=== PATIENT | male | born 1940 | race Caucasian/White ===

== ENCOUNTER → 2019-03-08 | Outpatient (CLI) | payer OTHER ==
[~2019-03-08] MED LIST: ASPI81CH; CHOL10002; CYCL10; DAILY MULTIPLE1 EACH; FISH OIL PO; GLUC500; GLUCOSAMINE PO; HYDACE5; LOVA20 PO; LOVA40; MICROZIDE12.5 M1; MULVITMIND PO; UBID10; UBID100 PO
== END | disposition home or self-care (01) ==
LOC: PLD 12:26 → LAB SHORT 12:26
DX: C04.1 Malignant neoplasm of lateral floor of mouth (principal)
CPT/HCPCS: 88305

== ENCOUNTER → 2019-03-21 | Outpatient (CLI) | payer OTHER | END | disposition home or self-care (01) | LOC: LAB SHORT 07:38 → PLD 07:38 | DX: C44.329 Squamous cell carcinoma of skin of other parts of face (principal) | CPT/HCPCS: 88305 ==

== ENCOUNTER → 2019-09-26 | Outpatient (CLI) | payer OTHER | END | disposition home or self-care (01) | LOC: LAB SHORT 11:25 → PLD 11:25 | DX: C44.319 Basal cell carcinoma of skin of other parts of face (principal) | CPT/HCPCS: 88305 ==

== ENCOUNTER → 2020-09-16 | Outpatient (CLI) | payer OTHER | END | disposition home or self-care (01) | LOC: PLD 10:46 → LAB SHORT 10:46 | DX: C44.42 Squamous cell carcinoma of skin of scalp and neck (principal) | CPT/HCPCS: 88173 ==

== ENCOUNTER → 2021-01-28 | Outpatient (CLI) | payer OTHER | END | disposition home or self-care (01) | LOC: LAB SHORT 11:37 → LAB 11:37 | DX: L03.313 Cellulitis of chest wall (principal) | CPT/HCPCS: 87015; 87116; 87206 ==

== ENCOUNTER 2021-06-12 08:26 | Day surgery (SDC) | payer OTHER ==
--- NOTE | 2021-06-11 13:14 | NUR ---
CALLED PT, SYDNEE ANSWERED ALL QUESTIONS FOR PRE-OP.
[~2021-06-12] VITALS: Ht 170.2 cm; Wt 63.7 kg
[~2021-06-12 08:26] MED LIST changes: +KRILL OIL500 MG PO; +Preservision S1 EACH PO; +VIT1CAPS12
--- NOTE | 2021-06-12 09:02 | NUR ---
PT ADMITTED TO [facility]. AGREES WITH PLANNED PROCEDURE. LUNG SOUNDS DIMINISHED T/O.
--- NOTE | 2021-06-12 09:44 | NUR ---
06/12/21 0944 Lori Smith SEE ANESTHESIA RECORD.
--- NOTE | 2021-06-12 10:51 | NUR ---
PT TOLERATING WARM C.L.. PT REPORTS HAVING APPT WITH [facility] FOR PEG TUBE. Patient up to Ambulate independently. Gait steady. Discharge instructions reviewed with patient. Patient verbalizes understanding. Copy given to patient to take home. Patient States Post-Procedure ride home has been arranged. Discharged via wheelchair to private car for ride home. ALSO DISCUSSED INSTRUCTIONS WITH .
== END 2021-06-12 10:51 | disposition home or self-care (01) ==
LOC: ORSCMMR 08:26
PROVIDERS: Surgery
PROC: 0DH63UZ Insertion of Feeding Device into Stomach, Percutaneous Approach (ICD-10-PCS; principal; 2021-06-12 10:00)
DX: C04.1 Malignant neoplasm of lateral floor of mouth (principal); C77.0 Secondary and unspecified malignant neoplasm of lymph nodes of head, face and neck; E78.5 Hyperlipidemia, unspecified; I10 Essential (primary) hypertension; F17.210 Nicotine dependence, cigarettes, uncomplicated; Z79.82 Long term (current) use of aspirin
CPT/HCPCS: J0690; J2704; J7120

== ENCOUNTER → 2021-08-19 | Outpatient (CLI) | payer OTHER | END | disposition home or self-care (01) | LOC: LAB SHORT 11:32 → PLD 11:32 | DX: C44.319 Basal cell carcinoma of skin of other parts of face (principal) | CPT/HCPCS: 88305 ==

== ENCOUNTER 2021-12-04 10:45 | Inpatient (IN) | payer OTHER ==
[~2021-12-04] VITALS: Ht 170.2 cm; Wt 60.0 kg
--- NOTE | 2021-12-04 11:50 | NUR ---
Ambulatory in Day Surgery History, Chart, Medications and Allergies reviewed before start of procedure.Pre-Op teaching done. Pt verbalizes understanding. DR ROMAN AND DR. HWANG NOTIFIED PT HAD 2 PROTIEN SHAKES VIA PEG TUBE AT 0600 WILL PROCEDURE TO SURGERY AT 1200
--- NOTE | 2021-12-04 18:43 | NUR ---
PT ARRIVED THIS AFTERNOON POST TRACHEOSTOMY PLACEMENT, SCANT BLEEDING NOTED AROUND NEW TRACH. TRACH COLLAR IN PLACE AND TUBE IS SECURE, SPO2 >95%. PT WOTH PRODUCTIVE COUGH UPON ARRIVAL, TRACH IS SUCTIONED ONCE WITH GOOD RESOLUTION OF SECRETIONS. PT ABLE TO MAKE NEEDS KNOWN USING NOTE PAD AND PEN. PT ABLE TO USE URINAL WITH MINIMAL ASSISTANCE. SKIN PWD AND INTACT. NO RESP DISTRESS NOTED
--- NOTE | 2021-12-05 06:04 | NUR ---
SHIFT SUMMARY ASSUMED CARE OF PT AT 1900. PT IS A/OX4. MOUTHS WORDS, USES HANDS, AND WRITES FOR COMMUNICATION. HEART SOUNDS REGULAR. LUNG SOUNDS CLEAR. PT TRACH HAS SMALL AMOUNT OF BLOOD SURROUNDING IT. PT COUGH/LEAKING LARGE AMOUNTS OF THICK SPUTUM/MUCUS. PT DEEP SUCTIONED OFTEN, PT ALSO SUCTIONS SELF. RT COUNCILED PT ABOUT TRACH AND CARE OF. TRACH CHANGED DUE TO SECRETIONS. PT ON TRACH COLLAR WITH 6L BLEED IN. SATURATIONS 99%. PT IS INDEPENDENT TO URINAL. NO COMPLAINTS OTHER THEN NEEDING TO BE SUCTIONED OFTEN.
[2021-12-05 11:04] LABS: BASOPHILS ABSOLUTE AUTO 0.03 K/mm3 (0.00-0.23); BASOPHILS PERCENT AUTO 0 % (0-2); EOSINOPHILS ABSOLUTE AUTO 0.02 K/mm3 (0.00-0.68); EOSINOPHILS PERCENT AUTO 0 % (0-6); Hematocrit 33.9 % (37.0-53.0); Hemoglobin 11.8 g/dL (13.5-17.5); IMMATURE GRAN ABSOLUTE AUTO 0.15 K/mm3 (0.00-0.10); IMMATURE GRAN PERCENT AUTO 1 % (0-1); LYMPHOCYTES PERCENT AUTO 7 % (21-46); MONOCYTES ABSOLUTE AUTO 1.87 K/mm3 (0.16-1.47); MONOCYTES PERCENT AUTO 17 % (4-13); Mean Corpuscular HGB 32.6 pg (26.0-34.0); Mean Corpuscular HGB Conc 34.8 g/dL (31.5-36.5); Mean Corpuscular Volume 94 fL (80-100); NEUTROPHILS ABSOLUTE AUTO 8.11 K/mm3 (1.96-9.15); NEUTROPHILS PERCENT AUTO 74 % (41-73); RDW Coefficient Variation 13.2 % (11.7-14.2); RDW Standard Deviation 45.1 fL (35.1-46.3); Red Blood Cell Count 3.62 M/mm3 (4.30-5.90); White Blood Cell Count 10.98 K/mm3 (4.00-11.30)
[2021-12-05 11:24] LABS: Albumin, Blood 2.5 g/dL (3.4-5.0); Albumin/Globulin Ratio 0.7 (0.8-1.8); Bilirubin, Total 0.8 mg/dL (0.1-1.0); Bun/Creatinine Ratio 25.2 (12.0-20.0); Calcium, Blood 8.7 mg/dL (8.5-10.1); Creatinine, Blood 0.6 mg/dL (0.60-1.20); Globulin, Blood 3.7 g/dL (2.2-4.0); Potassium, Blood 3.8 mmol/L (3.5-5.5); Total Protein, Blood 6.2 g/dL (6.4-8.2)
[2021-12-05 11:38] LABS: Mean Platelet Volume 10.8 fL (9.1-12.4)
[2021-12-05 11:48] LABS: Platelet Count 208 K/mm3 (150-400)
--- NOTE | 2021-12-05 15:15 | NUR ---
DR ROMAN'S ANSWERING SERVICE CALLED AT THIS TIME, AWAITING CALL BACK
--- NOTE | 2021-12-05 17:49 | NUR ---
PT REMAINS A/O X4, VSS, PT WITH LOW GRADE FEVER THIS AFTERNOON WHCIH WAS TREATED WITH TYLENOL. TUBE FEEDS CHANGED FROM CONTINUOUS TO BOLUS, BOLUS FEEDS BEING TOLERATED WELL. TRACH PRODUCES MODERATE AMT OF SPUTUM, NO DEEP SUCTIONING REQUIRED THIS SHIFT, ORAL SUCTIONING PERFORMED. DR ROMAN CALLED, HE WILL BE IN TO SEE PT ON WEDNESDAY TO CHANGE TRACH CANNULA, ALL SUPPLIES REQUESTED BY DR ROMAN ARE IN ROOM. O2 NEEDS HAVE NOT CHANGED TODAY, REMAINS ON 6L VIA TRACH COLLAR WITH HUMIDITY. SPO2 >95%. PT CONTINUES TO COMMUNITCATE WITH PAPER AND PEN, ABLE TO MAKE NEEDS KNOWN.
--- NOTE | 2021-12-06 05:29 | NUR ---
SHIFT SUMMARY PT ALERT AND ORIENTED X 4. HR STABLE. BP STABLE. NO CP OR PRESSURE REPORTED. OXYGEN SATURATION MAINTAINED ABOVE 95% ON 6 L VIA TRACH COLLAR. PT SUCTIONED ONCE AT 0500. PT ABLE TO CLEAR OWN SECRETIONS AND USE ORAL SUCTION ON OWN. PT REPORTS TO HAVE "BURNING EYES" DURING SHIFT. PT PROVIDED WITH COOL WASH RAG. PT REPORTS RELIEF. NO CREPITUS. PT HAS MODERATE AMOUNT OF SECRETIONS. PINK AND THICK IN COLOR. DRESSING CHANGED FREQUENTLY D/T SECRETIONS. PT SLEPT T/O SHIFT. CALL LIGHT WITHIN REACH. PT ABLE TO TURN SELF IN BED NEEDED. WILL CONT TO MONITOR UNTIL REPORT GIVEN TO DAYSHIFT RN.
[2021-12-06 08:44] LABS: Hematocrit 31.6 % (37.0-53.0); Hemoglobin 10.7 g/dL (13.5-17.5)
--- NOTE | 2021-12-06 10:30 | NUR ---
AM NOTE: PATIENT ALERT AND ORIENTED X4. WRITING/MOUTHING WORDS TO COMMUNICATE. PERRLA. DENIES NUMBNESS/TINGLING. SBA TO USE URINAL AT BEDSIDE. ABLE TO TURN SELF IN BED. ON 5.5L OF O2 VIA TRACH COLLAR SATING HIGH 90'S. RESPIRATORY CARE IN THIS AM AND CHANGED TRACH COLLAR/TRACH CARE. PATIENT COUGHING WITH THICK CARLOS/RED TINGED SPUTUM. SUCTION NEEDED. DENIES NEED FOR SUCTION THIS AM. LUNGS SOUNDING COARSE AND DIM. ON TELE SHOWING SINUS RHYTHM WITH PROLONGED QTC THIS AM MEASURING 0.53. DR. VELASQUEZ NOTIFIED, WILL CONTINUE TO MONITOR QTC. VITAL SIGNS STABLE. DENIES CHEST PAIN/PRESSURE. NO SIGNS OF EDEMA. DENIES ABDOMINAL PAIN/NAUSEA. 0800 TUBE FEED COMPLETED, PATIENT PARTICIPATED AND INSTRUCTED RN HOW TO DO GRAVITY FEEDS. WATER FLUSH BEFORE AND AFTER TUBE FEED. PEG TUBE INSERTION SITE CLEANED WITH SALINE AND CLEAN GAUZE PLACED. SLEEPING AT THIS TIME. WILL CONTINUE TO MONITOR.
--- NOTE | 2021-12-06 11:52 | NUR ---
PATIENT CURRENTLY ON ROOM AIR. RT IN ROOM TO HELP TITRATE. CONTINUOUS SPO2 MOINTORING AT THIS TIME TO WATCH CLOSELY. SATING 91-94% ON ROOM AIR. AFTERNOON TEMP 100.9 TYLENOL GIVEN PT. DENIES PAIN. REQUESTING TO HAVE LUNCH TUBE FEED AT 1230. WILL CONTINUE TO MONITOR.
--- NOTE | 2021-12-06 12:00 | NUR ---
AFTERNOON QTC CHECK WNL, READING 0.45
--- NOTE | 2021-12-06 15:24 | NUR ---
13 BEAT RUN OF VTACH, SEE SAVED TELE EVENTS. PATIENT LAYING IN BED AWAKE. DENIES SYMPTOMS. THIS RN 5-10 MIN PRIOR IN ROOM WITH PATIENT DOING VITALS AND LINNEN CHANGE. CALL PLACED TO DR. LEE, NO NEW ORDERS FOR THIS RN TO PLACE.
--- NOTE | 2021-12-06 17:50 | NUR ---
SHIFT SUMMARY: NO ACUTE CHANGES. ON ROOM AIR VIA TRACH COLLAR WITH HUMIDITY. MODERATE AMOUNT OF THICK YELLOW/RED TINGED SPUTUM THIS SHIFT. PATIENT SUCTIONING VIA MOUTH, THIS RN STERILE TRACH SUCTION X2. Q2 TRACH CARE CLEANING SECRETIONS AND REPLACING GAUZE. 13 BEAT RUN VTACH, NONSYMPTOMATIC. SINUS RHYTHM 90'S. DENIES CHEST PAIN/PRESSURE. ONLY COMPLAINS OF PAIN WHEN SWALLOWING. TYLENOL GIVEN X1 FOR ELEVATED TEMP. USING URINAL TO VOID. TUBE FEEDINGS TO GRAVITY WITH WATER FLUSHES AND ADDITIONAL WATER BOLUSES THROUGHOUT SHIFT. PATIENT REFUSED ORAL CARE AND BED BATH THIS SHIFT. DENIES NEEDS AT THIS TIME. CALL LIGHT IN REACH.
[2021-12-07 04:14] LABS: Hematocrit 32.8 % (37.0-53.0); Hemoglobin 11.1 g/dL (13.5-17.5)
[2021-12-07 04:30] LABS: Bun/Creatinine Ratio 21.6 (12.0-20.0); Calcium, Blood 8.7 mg/dL (8.5-10.1); Creatinine, Blood 0.65 mg/dL (0.60-1.20)
--- NOTE | 2021-12-07 06:31 | NUR ---
SHIFT SUMMARY PT ALERT AND ORIENTED X 4. HR STABLE. BP STABLE. NO CP OR PRESSURE. TRACH SUCTIONED ONE TIME DURING SHIFT. OXYGEN SATURATION MAINTAINED ABOVE 92% ON RA W/TRACH COLLAR TO HUMIDIFICATION. PT ABLE TO TURN SELF IN BED. SLEPT T/O SHIFT. DRESSING ON TRACH CHANGED NEEDED. MUCOUS NO LONGER BLOOD TINGED, YELLOW/WHITE IN COLOR AT THIS TIME. ORAL CARE PROVIDED ONCE. PT REFUSING CARE AT TIMES. AGGITATED AT TIMES. CALL LIGHT WITHIN REACH. WILL CONT TO MONITOR UNTIL REPORT GIVEN TO DAYSHIFT RN.
--- NOTE | 2021-12-07 06:58 | NUR ---
[facility] AND [facility]ARTS/ORDERS NOT ACCESSIBLE FROM [phone] 12/06/21
--- NOTE | 2021-12-07 09:06 | NUR ---
AM NOTE: PATIENT ALERT AND ORIENTED. USING NOTEPAD AND MOUTHING WORDS TO COMMUNICATE. DENIES NUMBNESS/TINGLING. ON ROOM AIR VIA TRACH COLLAR WITH HUMIDIFICATION. TRACH CARE COMPELTED THIS AM. SUCTIONING NEEDED. PATIENT SUCTION AT BEDSIDE. THICK YELLOW/GREEN PINK TINGED SPUTUM. PATIENT ABLE TO COUGH AND CLEAR SPUTUM. TELE SHOWING SINUS TACH WITH HR 90'S. DENIES CHEST PAIN/PRESSURE. VITAL SIGNS STABLE. ORAL TEMP 98.8 THIS AM. COMPLAINS OF CONSTIPATION. STATES HE HAS NOT HAD BM IN 4-5 DAYS. SUPPOSITORY GIVEN THIS AM ALONG WITH SCHEDULED DOCUSATE SODIUM PT. TUBE FEED COMPLETED THIS AM WITH WATER FLUSHES. USING URINAL TO VOID. DENIES NEEDS AT THIS TIME. WILL CONTINUE TO MONTIOR.
--- NOTE | 2021-12-07 18:06 | NUR ---
SHIFT SUMMARY: NO ACUTE CHANGES THROUGHOUT SHIFT. REMAINS ON ROOM AIR WITH TRACH COLLAR HUMIDIFICATION. TRACH CARE DONE THIS AM AND EVENING. INNER CANNULA CHANGED WITH 2ND RN TO HELP/TEACH THIS RN. DEEP STERILE TRACH SUCTION DONE 3X THIS SHIFT. PATIENT USING BEDSIDE SUCTION FOR SPUTUM IN MOUTH. NO CHANGES TO TELE. TYLENOL GIVE PT X1. 2 SMALL BOWEL MOVEMENTS THIS SHIFT. TUBE FEEDINGS WITH WATER FLUSHES DONE X2. BED BATH DONE. PLAN FOR DR. ROMAN TO COME TOMORROW AND CHANGE TRACH SIZE. FAMILY WILL BE HERE TOMORROW AND TRACH CARE EDUCATION NEEDS TO BE DONE WITH THEM. WRITTEN EDUCATION PRINTED AND PACKET MADE FOR PATIENT AND FAMILY TO TAKE HOME. DENIES NEEDS AT THIS TIME. CALL LIGHT IN REACH.
--- NOTE | 2021-12-07 23:01 | NUR ---
CARE ASSUMPTION: RECEIVED REPORT FROM MICHOACANO ALARCON RN. PATIENT IN BED WITH HUMIDIFIER OVER TRACH. VS WNL ON RA. PATIENT DENIES CHEST PAIN OR SOB. SUCTIONED NEEDED AND PATIENT HAS PROVIDED OWN ORAL CARE. BED LOW WITH CALL LIGHT IN REACH.
[2021-12-08 04:48] LABS: BASOPHILS ABSOLUTE AUTO 0.03 K/mm3 (0.00-0.23); BASOPHILS PERCENT AUTO 0 % (0-2); EOSINOPHILS ABSOLUTE AUTO 0.03 K/mm3 (0.00-0.68); EOSINOPHILS PERCENT AUTO 0 % (0-6); Hematocrit 33.4 % (37.0-53.0); Hemoglobin 10.9 g/dL (13.5-17.5); IMMATURE GRAN ABSOLUTE AUTO 0.03 K/mm3 (0.00-0.10); IMMATURE GRAN PERCENT AUTO 0 % (0-1); LYMPHOCYTES ABSOLUTE AUTO 0.56 K/mm3 (0.84-5.20); LYMPHOCYTES PERCENT AUTO 8 % (21-46); MONOCYTES ABSOLUTE AUTO 0.81 K/mm3 (0.16-1.47); MONOCYTES PERCENT AUTO 11 % (4-13); Mean Corpuscular HGB 31.8 pg (26.0-34.0); Mean Corpuscular HGB Conc 32.6 g/dL (31.5-36.5); Mean Corpuscular Volume 97 fL (80-100); Mean Platelet Volume 10.5 fL (9.1-12.4); NEUTROPHILS ABSOLUTE AUTO 5.67 K/mm3 (1.96-9.15); NEUTROPHILS PERCENT AUTO 80 % (41-73); Platelet Count 229 K/mm3 (150-400); RDW Coefficient Variation 13.5 % (11.7-14.2); RDW Standard Deviation 48.3 fL (35.1-46.3); Red Blood Cell Count 3.43 M/mm3 (4.30-5.90); White Blood Cell Count 7.13 K/mm3 (4.00-11.30)
--- NOTE | 2021-12-08 05:24 | NUR ---
SHIFT SUMMARY: PATIENT'S TRACH REMAINS IN PLACE. PATIENT HAS COUGHED PHLEGM OUT OF TRACH. TRACH SUCTIONED T/O SHIFT FOR PATIENT COMFORT. SITE CLEANED X2. PATIENT SUCTIONED MOUTH T/O SHIFT AND USED MOUTH SWABS BUT DECLINED ORAL CARE. PATIENT USES URINAL AT BEDSIDE AND CAN MOVE BETWEEN BED AND CHAIR. VS WNL. PATIENT MAKES NEEDS KNOWN WHEN ASKED BUT HAS NOT SOUGHT ASSISTANCE THIS SHIFT. PATIENT KEPT NPO, NO MEDS ADMINISTERED. BED LOW WITH CALL LIGHT IN REACH. WILL CONTINUE TO MONITOR AND REPORT TO ONCOMING RN.
--- NOTE | 2021-12-08 18:33 | NUR ---
Shift Summary Pt alert, oriented, using pen and pad and mouthing words for communications. Pt trach site tender to touch, this yellow/green sputum noted t/o shift, trach clearned several times t/o shift, suctions trach x2. Spouse and granddaughter at bedside this afternoon, RT and this RN to room to educated on trach care. Pt denies pain, chest pain/pressure, nausea and dizziness. Pt reports sob at times, coughing up large amounts of sputum t/o shift. Spo2 >90% on ra, humified ra via trach collar. Tele sinus, bp stable. Tubing feeding per orders, pt declined 1200 feeding due to feeling full. Other vss. No other acute changes noted. Will continue to monitor. Until report given to oncoming rn.
--- NOTE | 2021-12-08 20:18 | NUR ---
CARE ASSUMPTION: RECEIVED REPORT FROM VALENTINO ALEJO RN. PATIENT A&O, PRODUCING COPIOUS SPUTUM FROM TRACH, AND FRUSTRATED HE DIDN'T GO HOME TODAY. SUCTIONED TRACH AND PATIENT HAS BEEN SUCTIONING MOUTH ON HIS OWN. PATIENT UP IN ROOM AND USING BEDSIDE URINAL. BED LOW WITH CALL LIGHT IN REACH.
[2021-12-09 04:40] LABS: Hematocrit 32.3 % (37.0-53.0); Hemoglobin 10.9 g/dL (13.5-17.5)
--- NOTE | 2021-12-09 06:16 | NUR ---
SHIFT SUMMARY: NO ACUTE CHANGES THIS SHIFT. PATIENT DENIES PAIN OR DISCOMFORT, NO SHORTNESS OF BREATH. SUCTIONED X3. PATIENT EXPELLING LARGE AMOUNTS OF SPUTUM OUT TRACH ON OWN. BED LOW WITH CALL LIGHT IN REACH. WILL CONTINUE TO MONITOR AND REPORT TO ONCOMING RN.
--- NOTE | 2021-12-09 18:24 | NUR ---
Shift Summary Pt alert, oriented, able to make needs known, mouth or writes needs. Pt anxious for discharge home. Awaiting home health ability to admitt same day to assist with training with home trach care, plans for potential d/c . Pt denies pain, chest pain/pressure, nasuea, dizziness and numb/tingling. Pt reports occasional sob while attempting to clear sputum from trach, trach suction and care completed t/o. Copious amounts of sputum noted, foul smelling, notified Dr Villareal, new orders for sputum cultures, collected and send to lab. Site just below trach on chest is red and this afternoon noted possible pus at suture sites, notified Dr Bowie, no new orders at this time. Family not at bedside, at home awaiting delivery from [facility], [place], Will be in tomorrow for additional educated and trach care teaching. Vss. No other acute changes noted. Will continues to monitor unitl report given to oncoming rn.
--- NOTE | 2021-12-09 22:51 | NUR ---
CARE ASSUMPTION: SUPPOSITORY ADMINISTERED ON DAY SHIFT. PATIENT REQUESTED TO USE TOILET FOR BM WHILE RECEIVING REPORT. THIS RN REMOVED HUMIDIFYING TRACH COLLAR - PATIENT WALKED TO TOILET WITH SUPERVISION AND PASSED SMALL BM. CLEANED SPUTUM FROM PATIENT CHEST AND HUMIDIFIER. PATIENT WITHDRAWN AND REFUSING CARES R/T FRUSTRATION WITH NOT GOING HOME. DECLINED 2100 MED AND SUCTIONING STATING HE "JUST WANTS TO REST." PATIENT SUCTIONING MOUTH NEEDED. BED LOW WITH CALL LIGHT IN REACH.
[2021-12-10 04:57] LABS: BASOPHILS ABSOLUTE AUTO 0.04 K/mm3 (0.00-0.23); BASOPHILS PERCENT AUTO 1 % (0-2); EOSINOPHILS ABSOLUTE AUTO 0.05 K/mm3 (0.00-0.68); EOSINOPHILS PERCENT AUTO 1 % (0-6); Hematocrit 32.4 % (37.0-53.0); Hemoglobin 10.7 g/dL (13.5-17.5); IMMATURE GRAN ABSOLUTE AUTO 0.05 K/mm3 (0.00-0.10); IMMATURE GRAN PERCENT AUTO 1 % (0-1); LYMPHOCYTES ABSOLUTE AUTO 0.68 K/mm3 (0.84-5.20); LYMPHOCYTES PERCENT AUTO 8 % (21-46); MONOCYTES ABSOLUTE AUTO 1.23 K/mm3 (0.16-1.47); MONOCYTES PERCENT AUTO 14 % (4-13); Mean Corpuscular Volume 97 fL (80-100); Mean Platelet Volume 10.4 fL (9.1-12.4); NEUTROPHILS ABSOLUTE AUTO 6.59 K/mm3 (1.96-9.15); NEUTROPHILS PERCENT AUTO 76 % (41-73); Platelet Count 238 K/mm3 (150-400); RDW Coefficient Variation 13.5 % (11.7-14.2); Red Blood Cell Count 3.34 M/mm3 (4.30-5.90); White Blood Cell Count 8.64 K/mm3 (4.00-11.30)
[2021-12-10 05:17] LABS: Bun/Creatinine Ratio 29.3 (12.0-20.0); Creatinine, Blood 0.68 mg/dL (0.60-1.20); Potassium, Blood 4.3 mmol/L (3.5-5.5)
--- NOTE | 2021-12-10 06:14 | NUR ---
SHIFT SUMMARY: PATIENT VSS ON RA T/O SHIFT. OUTER TRACH SCRUBBED TO BEST OF ABILITY AND VELCRO COLLAR CHANGED. WOUND CULTURE SENT TO LAB. PATIENT REFUSED RT TREATMENT. THIS RN SUCTIONED TWICE DURING SHIFT. PATIENT PASSED TWO BMS T/O SHIFT. BED LOW WITH CALL LIGHT IN REACH. WILL CONTINUE TO MONITOR AND REPORT TO ONCOMING RN.
--- NOTE | 2021-12-10 16:25 | NUR ---
Shift Summary Pt alert, oriented; writes and mouths for communication t/o shift. Pt denies pain, chest pain/pressure, nausea, dizziness and numb/tingling t/o shift. Pt reports sob while attempting to clear trach. Spo2 >90% t/o shift on ra, humidity via trach collar. Trach continues to expell larges amount of foul smelling sputum, green in color. Discussed concerns regarding sputum with MD, no new orders. Trach care completed several times t/o shift. Spouse and family member educated on trach care, spouse attempting to suction and assist with trach cleaning, additional edcuated needed. Tele SR/ST, bp stable. Temp 100.2, notified MD, no new orders. Other vss. No other acute changes noted during shift. Will continue to monitor until report given to oncoming.
[2021-12-11 05:12] LABS: BASOPHILS ABSOLUTE AUTO 0.02 K/mm3 (0.00-0.23); BASOPHILS PERCENT AUTO 0 % (0-2); EOSINOPHILS ABSOLUTE AUTO 0.01 K/mm3 (0.00-0.68); EOSINOPHILS PERCENT AUTO 0 % (0-6); Hematocrit 30.1 % (37.0-53.0); IMMATURE GRAN ABSOLUTE AUTO 0.05 K/mm3 (0.00-0.10); IMMATURE GRAN PERCENT AUTO 1 % (0-1); LYMPHOCYTES ABSOLUTE AUTO 0.51 K/mm3 (0.84-5.20); LYMPHOCYTES PERCENT AUTO 7 % (21-46); MONOCYTES ABSOLUTE AUTO 1.15 K/mm3 (0.16-1.47); MONOCYTES PERCENT AUTO 15 % (4-13); Mean Corpuscular HGB 32.1 pg (26.0-34.0); Mean Corpuscular HGB Conc 33.2 g/dL (31.5-36.5); Mean Corpuscular Volume 97 fL (80-100); Mean Platelet Volume 10.6 fL (9.1-12.4); NEUTROPHILS PERCENT AUTO 77 % (41-73); Platelet Count 232 K/mm3 (150-400); RDW Coefficient Variation 13.5 % (11.7-14.2); RDW Standard Deviation 48.1 fL (35.1-46.3); Red Blood Cell Count 3.12 M/mm3 (4.30-5.90); White Blood Cell Count 7.64 K/mm3 (4.00-11.30)
[2021-12-11 05:52] LABS: Calcium, Blood 8.8 mg/dL (8.5-10.1); Creatinine, Blood 0.64 mg/dL (0.60-1.20); Potassium, Blood 3.9 mmol/L (3.5-5.5)
--- NOTE | 2021-12-11 05:52 | NUR ---
SHIFT SUMMARY ASSUMED CARE OF PT AT 1900. PT IS A/OX4. USES NOTE PAD TO COMMUNICATE. HEART SOUNDS REGULAR. LUNG SOUNDS DIMINISHED/ COARSE. PT COUGHED UP LARGE AMOUNTS OF FOUL SMELLING GREEN SPUTUM FROM TRACH. PT WAS DEEP SUCTIONED ONCE. PT WORE TACH COLLOR WITH 8L BLEED IN. SATURATIONS REMAINED ABOVE 95%. PT STOOD AT BEDSIDE TO USE URINAL. PT WAS WITHDRAWN THIS EVENING. PT DID NOT WANT TO PARTICIPATE IN CONVERSATION. PT DID NOT SLEEP WELL DUE TO COUGHING.
[2021-12-11] MEDS ORDERED: AMOCLA875 PO (11:01)
[2021-12-11] MEDS ORDERED: Tessalon200 MG PO (11:02)
--- NOTE | 2021-12-11 11:45 | NUR ---
DISHCARGE SUMMARY: PATIENT WAS SUNCTIONED, IV REMOEVED, DISCHARGE AND EDUCATION INSTRUCTIONES WERE COMPLETELY UNDERSTOOD, MEDICATION SENT TO [facility], PATIENT IS ALERT AND ORIENTED JOYFULLY TEARFUL HE IS EXCITED TO BE HOME. PATIENT WAS SENT WITH 3L OF STERILE WATER [facility] MAY NOT HAVE IT. PATIENT WAS SEEN BY DR. DITERICH, [place], THIS RN, PRIOR TO DISCHARGE NO CONCERNS FROM THIS RN, PATIENT OR THE HOSPITALIST AT TIME OF DISCHARGE. PATIENT PIVOT TRANSFERRED TO [facility] AND ESCORTED OUT BY [facility]. ALL DOCUMENTATION AND PERSONAL BELONGINGS WERE IN TOW WITH [facility].
== END 2021-12-11 11:19 | disposition home health service (06) | DRG 4 ==
LOC: ORSCMMR 10:45 → ORD 12:00 → ORSCMMR 12:00 → PCU 12:59 → ORSCMMR 12:59 → PCU 13:00
PROVIDERS: Family Medicine; Otolaryngology; Student in an Organized Health Care Education/Training Program; ADMIT Internal Medicine
PROC: 0B110F4 Bypass Trachea to Cutaneous with Tracheostomy Device, Open Approach (ICD-10-PCS; principal; 2021-12-04 12:00)
DX: C78.00 Secondary malignant neoplasm of unspecified lung (principal); C79.89 Secondary malignant neoplasm of other specified sites; C76.0 Malignant neoplasm of head, face and neck; C04.9 Malignant neoplasm of floor of mouth, unspecified; Z66 Do not resuscitate; I10 Essential (primary) hypertension; E78.00 Pure hypercholesterolemia, unspecified; M54.9 Dorsalgia, unspecified; R06.1 Stridor; F17.210 Nicotine dependence, cigarettes, uncomplicated; R13.10 Dysphagia, unspecified; Z20.822 Contact with and (suspected) exposure to COVID-19; B96.3 Hemophilus influenzae [H. influenzae] as the cause of diseases classified elsewhere; Z93.1 Gastrostomy status; Z98.890 Other specified postprocedural states; Z95.820 Peripheral vascular angioplasty status with implants and grafts
CPT/HCPCS: 36415; 80048; 80053; 85014; 85018; 85025; 87070; 87075; 87077; 87185; 87205; 94760; 94762; A9270; J0295; J1100; J2250; J2370; J2405; J2704; J3010; J7030; J7120

== ENCOUNTER 2022-01-23 14:39 | Emergency (ER) | payer OTHER ==
[~2022-01-23] VITALS: Ht 170.2 cm; Wt 55.8 kg
[~2022-01-23 14:39] MED LIST changes: +AMOCLA875 PO; +Tessalon200 MG PO
[2022-01-23 15:30] LABS: BASOPHILS ABSOLUTE AUTO 0.02 K/mm3 (0.00-0.23); BASOPHILS PERCENT AUTO 0 % (0-2); EOSINOPHILS ABSOLUTE AUTO 0.01 K/mm3 (0.00-0.68); EOSINOPHILS PERCENT AUTO 0 % (0-6); Hemoglobin 11.2 g/dL (13.5-17.5); IMMATURE GRAN ABSOLUTE AUTO 0.03 K/mm3 (0.00-0.10); IMMATURE GRAN PERCENT AUTO 0 % (0-1); LYMPHOCYTES ABSOLUTE AUTO 1.63 K/mm3 (0.84-5.20); LYMPHOCYTES PERCENT AUTO 19 % (21-46); MONOCYTES ABSOLUTE AUTO 1.14 K/mm3 (0.16-1.47); MONOCYTES PERCENT AUTO 13 % (4-13); Mean Corpuscular HGB 31.8 pg (26.0-34.0); Mean Corpuscular HGB Conc 32.9 g/dL (31.5-36.5); Mean Corpuscular Volume 97 fL (80-100); Mean Platelet Volume 10.3 fL (9.1-12.4); NEUTROPHILS PERCENT AUTO 68 % (41-73); Platelet Count 250 K/mm3 (150-400); RDW Coefficient Variation 15.5 % (11.7-14.2); RDW Standard Deviation 54.7 fL (35.1-46.3); Red Blood Cell Count 3.52 M/mm3 (4.30-5.90); White Blood Cell Count 8.83 K/mm3 (4.00-11.30)
[2022-01-23 15:43] LABS: Albumin, Blood 2.7 g/dL (3.4-5.0); Albumin/Globulin Ratio 0.6 (0.8-1.8); Bilirubin, Total 0.4 mg/dL (0.1-1.0); Bun/Creatinine Ratio 34.7 (12.0-20.0); Calcium, Blood 9.2 mg/dL (8.5-10.1); Creatinine, Blood 0.61 mg/dL (0.60-1.20); Globulin, Blood 4.4 g/dL (2.2-4.0); Potassium, Blood 4.1 mmol/L (3.5-5.5); Total Protein, Blood 7.1 g/dL (6.4-8.2)
== END 2022-01-23 20:58 | disposition home or self-care (01) ==
LOC: ER 14:39
PROVIDERS: Physician Assistant
DX: J95.03 Malfunction of tracheostomy stoma (principal); R91.1 Solitary pulmonary nodule; Y82.9 Unspecified medical devices associated with adverse incidents; Z87.891 Personal history of nicotine dependence
CPT/HCPCS: 36415; 71046; 80053; 85025